=== PATIENT | male | born 1985 | race Two or more races ===

== ENCOUNTER 2024-12-08 05:31 | Emergency (ER) | payer BC, MEDICAID, SELFPAY ==
[2024-12-08 05:32] VITALS: BMI 37.3
[2024-12-08 05:43] VITALS: BP 152/92; PULSE 77; RESP 18; TEMP 36.9; O2SAT 98
--- NOTE | 2024-12-08 06:01 | EDNOTE_ITS ---
<Statement entered by Kellie Camargo MD - 12/08/24 06:16> As co-signing physician, I was present and available for consult prn. I concur with the plan and care as documented by the midlevel provider. ED General RME/HPI General Chief complaint: Ankle/Foot Injury Stated complaint: POSSIBLE ABCESS TO R FOOT Time Seen by Provider: 12/08/24 05:58 Arrival date/time: 12/08/24 05:31 CC: Right ankle/foot pain HTN patient states he cut it 5 days ago while swimming is not sure what it is, patient denies fever chills chest pain shortness of breath difficulty breathing. There is a small amount of redness and tenderness to the base of the heel denies any other symptoms localized pain 1-2 out of 10 scale. Related Data Previous Rx's ?Medication ?Instructions ?Recorded hydrocodone 5 mg-acetaminophen 325 1 tab PO BID PRN pa in #7 tabs 06/25/22 mg tablet ibuprofen 600 mg tablet 600 mg PO TID PRN pain #20 t abs 06/25/22 sulfamethoxazole 800 1 tab PO BID 7 days #14 tabs 12/08/24 mg-trimethoprim 160 mg tablet (Bactrim DS) Allergies Allergy/AdvReac Type Severity Reaction Status Date / Time Penicillins Allergy Severe RASH Verified 12/08/24 05:36 Review of Systems Review of Systems Narrative Review of Systems: GEN: No fever, no chills, no weight loss EYES: No discharge, no visual changes, no pain HEENT: No ear pain, no congestion, no sore throat PULM: No shortness of breath, no cough, no congestion CV: No chest pain, no dyspnea on exertion, no palpitations GI: No nausea, no vomiting, no diarrhea, no pain, no constipation : No frequency, no urgency, no dysuria MUSC/SKEL: No joint pain, no back pain SKIN: Swelling and redness to the lateral aspect of the right foot no rash PSYCH: No hallucinations, no depression HEME/LYMPH: No easy bleeding or bruising tendencies NEURO: No weakness, no headache Past Medical History Social History SMOKING STATUS: Never smoker ED Exam Narrative Physical exam: [General: Obese not in cot no acute distress Head normocephalic HEENT: Within acceptable limits Neck is supple nontender Chest equal chest rise nontender to palpation Respiratory: Clear to auscultation no wheezes crackles or rubs CV: Rate rhythm is regular no murmurs rubs or clicks Abdomen is distended secondary to body habitus soft nontender no masses positive bowel sounds all 4 quadrants Back: No CVA tenderness no spinous process tenderness from cervical spine thoracic and lumbar spine Skin: Small indurated area of an old laceration to the lateral aspect of the right heel, mild surrounding erythema no streaking mildly tender to touch no crepitus induration ulceration no oozing or bleeding. Otherwise skin is intact no petechiae rash induration ulceration or crepitus Extremities: Moving all extremity against resistance cap refill less than 2 seconds neurosensory intact Neuro: Awake alert oriented x3 Glascow coma 15 no focal deficits] Course Quality Measures none Vital Signs Vital signs: Vital Signs Temperature 98.4 F 12/08/24 05:43 Pulse Rate 77 12/08/24 05:43 Respiratory Rate 18 12/08/24 05:43 Blood Pressure 152/92 H 12/08/24 05:43 Pulse Oximetry (%) 98 12/08/24 05:43 Oxygen Delivery Method Room Air 12/08/24 05:43 Discharge Plan Plan Patient Disposition: HOME (Self Care) Patient condition on transfer: Stable Prescriptions/Referrals Prescriptions/Med Rec: New sulfamethoxazole-trimethoprim [Bactrim DS] 800-160 mg tablet 1 tab PO BID 7 Days Qty: 14 0RF No Action hydrocodone-acetaminophen 5-325 mg tablet 1 tab PO BID MDD 10mg PRN (Reason: pain) Qty: 7 0RF ibuprofen 600 mg tablet 600 mg PO TID PRN (Reason: pain) Qty: 20 0RF Problem List Clinical Impression: Cellulitis of foot Patient/Caregiver Discharge Instructions Education Materials: ED Cellulitis Additional Instructions: Take the antibiotics until completely gone if there is a worsening of symptoms spite of medications return the emergency room for reevaluation. Print Language: [place] Stand Alone Forms: Velia Award Info., Patient Portal Info Letter, Work/School Release PA/W[employer] ENGINEER Supervising Physician PA/W[employer] ENGINEER Supervising Physician: Berto Buckley ENP [facility] Clinical Information Provided by patient Medical Records Reviewed [facility] Meds/Rx Considered, not Ordered None Labs/Rad/Tests considered, not Ordered None Chronic Illness/Social Conditions which may negatively complicate care or outcome(s)-explain: None or not applicable EKG EKG not done Lab Interpretation Labs: none Imaging Imaging interpretation: none Medication Administration(s) none Diagnosis Differential diagnosis: Abscess, cellulitis, localized reaction Dispositon Disposition: Discharge Home
== END 2024-12-08 06:10 | disposition home or self-care (01) ==
LOC: SERX 06:57
PROVIDERS: Emergency Provider Emergency Medicine
DX: L03.115 Cellulitis of right lower limb (principal)
CPT/HCPCS: 99282